=== PATIENT | male | born 1960 | race Asian ===

== ENCOUNTER 2023-02-01 06:44 | Day surgery (SDC) | payer OTHER ==
[~2023-02-01] VITALS: Ht 167.6 cm; Wt 67.2 kg
[2023-02-01] MEDS ORDERED: ALBUTEROL SULFATE 2.5 MG/0.5 ML NEB SOLUTION NEB ONE (06:45)
[2023-02-01] MEDS ORDERED: LIDOCAINE 4% 50 ML SOLUTION TP ONE (06:45)
[2023-02-01] MEDS ORDERED: LIDOCAINE 2% 11 ML JELLY TP ONE (06:45)
[2023-02-01] MEDS ORDERED: BENZOCAINE 20% 50 MCG/SPRAY 57 GM TP ONE (06:45)
[2023-02-01] MEDS ORDERED: SODIUM CHLORIDE 0.9% 1,000 ML IV ONE (07:00)
[2023-02-01] MEDS ORDERED: SODIUM CHLORIDE 0.9% 1,000 ML ONE (07:21)
[2023-02-01] MEDS ORDERED: SIMV-260 PO (08:08)
[2023-02-01] MEDS ORDERED: AMLO-258 PO (08:08)
[2023-02-01] MEDS ORDERED: LISI-892 PO (08:08)
[2023-02-01] MEDS ORDERED: TAMS-13 PO (08:08)
[2023-02-01] MEDS ORDERED: CHOL200059 PO (08:08)
[2023-02-01] MEDS ORDERED: MIDAZOLAM HCL 2 MG/2 ML VIAL ONE (08:16)
[2023-02-01] MEDS ORDERED: FentaNYL CITRATE PF 100 MCG/2 ML VIAL ONE (08:16)
[2023-02-01 09:30] VITALS: PULSE 72; RESP 16; O2SAT 100
[2023-02-01] MEDS ORDERED: MethylPREDNISolone SOD SUCC 125 MG/2 ML VIAL IVP ONE (09:45)
== END 2023-02-01 11:45 | disposition home or self-care (01) ==
LOC: SURGERY 06:44
PROVIDERS: ATTEND Internal Medicine Critical Care Medicine
DX: J38.4 Edema of larynx (principal); B37.0 Candidal stomatitis; I10 Essential (primary) hypertension; J45.909 Unspecified asthma, uncomplicated; M19.90 Unspecified osteoarthritis, unspecified site; Z79.899 Other long term (current) drug therapy; Z98.890 Other specified postprocedural states
CPT/HCPCS: 31623; 88112; 87206; 87101; 87220; 87070; 87186; 31624; 94640; 71045; 87015; J3010; J2250; Q9967; J7030; J7613; Z7610